=== PATIENT | male | born 1945 | race Caucasian/White ===

== ENCOUNTER → 2020-04-12 15:50 | Outpatient (BNVA) | payer MEDICARE, OTHER, SELFPAY | PROVIDERS: Family Provider Nurse Practitioner; PCP Nurse Practitioner; Visit Provider Nurse Practitioner | DX: R10.9 Unspecified abdominal pain (principal) | CPT/HCPCS: 80053; 81000; 85025 ==

== ENCOUNTER 2020-04-24 06:37 | Outpatient (CLI) | payer MEDICARE, OTHER, SELFPAY ==
--- NOTE | 2020-04-24 07:15 | US_ITS ---
NOTE: Report was unsigned for reason: Order was edited. Original Signature date and time was: 04/24/20 0836 WS: [id number] RENAL ULTRASOUND URINARY BLADDER ULTRASOUND HISTORY: right flank COMPARISON: None available. TECHNIQUE: 2-D and color Doppler imaging of the kidney submitted. Right kidney: 10.6 cm x 6.7 cm x 6.5 cm. Normal echogenicity with no hydronephrosis or mass. Left kidney: 10.6 cm x 5.0 cm x 5.6 cm. Normal echogenicity with no hydronephrosis or mass. Aorta: Mild atherosclerosis and ectasia. No aneurysm. Urinary Bladder: Minimally distended bladder. No intraluminal filling defects. Prostate gland is slightly enlarged measuring 4.2 x 4.4 x 3.0 cm. [facility] US/US renal BI with PV bladder IMPRESSION: 1. No renal obstruction or mass. 2. Mild prostate enlargement.
--- NOTE | 2020-04-24 08:00 | XR_ITS ---
WS: [id number] Exam: XR lumbar spine 2-3V* [id number] Date/Time of Exam: 04/24/2020 8:00 AM Reason For Exam: Right flank pain Findings: No acute fracture or dislocation. There is spondylosis. There is degenerative facet change at all lev els. 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 XR/XR lumbar spine 2-3V* [id number] IMPRESSION: 1. No acute fracture or malalignment. 2. Degenerative changes.
== END 2020-04-24 06:38 | disposition home or self-care (01) ==
LOC: US 06:42
PROVIDERS: PCP Nurse Practitioner; Visit Provider Nurse Practitioner
DX: R10.9 Unspecified abdominal pain (principal); N40.0 Benign prostatic hyperplasia without lower urinary tract symptoms
CPT/HCPCS: 72100; 76770; 76857

== ENCOUNTER → 2021-05-07 11:47 | Outpatient (BNVA) | payer MEDICARE, OTHER, SELFPAY | PROVIDERS: PCP Nurse Practitioner; Visit Provider Nurse Practitioner | DX: I10 Essential (primary) hypertension (principal) | CPT/HCPCS: 80053; 80061; 81000; 84443; 85025 ==

== ENCOUNTER → 2022-05-20 08:55 | Outpatient (BNVA) | payer MEDICARE, OTHER, SELFPAY | PROVIDERS: PCP Nurse Practitioner; Visit Provider Nurse Practitioner Family | DX: I10 Essential (primary) hypertension (principal) | CPT/HCPCS: 80053; 80061; 84443; 85025 ==

== ENCOUNTER → 2022-11-03 09:52 | Outpatient (BNVA) | payer MEDICARE, OTHER, SELFPAY | PROVIDERS: PCP Nurse Practitioner; Visit Provider Nurse Practitioner Family | DX: R05.9 Cough, unspecified (principal) | CPT/HCPCS: 71046 ==

== ENCOUNTER → 2023-03-16 10:41 | Outpatient (BNVA) | payer MEDICARE, OTHER, SELFPAY | PROVIDERS: PCP Nurse Practitioner; Visit Provider Nurse Practitioner Family | DX: I10 Essential (primary) hypertension (principal) | CPT/HCPCS: 80053; 80061; 84443; 85025 ==

== ENCOUNTER → 2023-09-21 09:45 | Outpatient (BNVA) | payer MEDICARE, OTHER, SELFPAY | PROVIDERS: PCP Nurse Practitioner; Visit Provider Nurse Practitioner Family | DX: I10 Essential (primary) hypertension (principal); E78.2 Mixed hyperlipidemia | CPT/HCPCS: 80053; 80061; 84443; 85025 ==

== ENCOUNTER → 2024-01-26 10:06 | Outpatient (BNVA) | payer MEDICARE, OTHER, SELFPAY | PROVIDERS: PCP Nurse Practitioner; Visit Provider Nurse Practitioner | DX: B35.1 Tinea unguium (principal) | CPT/HCPCS: 80053 ==

== ENCOUNTER 2024-03-15 06:14 | Outpatient (CLI) | payer MEDICARE, OTHER, SELFPAY ==
--- NOTE | 2024-03-15 06:30 | USCV_ITS ---
Carlos Morales Age: 79 Gender: M : 1945 Exam Date: 03/15/2024 06:42 Ordering Phys: Curtis Delaney Technologist: Liz Collado Exam Location: [facility] [place] Indication: SYNCOPE, SUPRIYA BP: 130 / 68 HR: 61 Rhythm: Sinus Technical Quality: MEASUREMENTS (Male / Female) Normal Values 2D ECHO LVOT Diameter 2.0 cm LV Ejection Fraction MOD 4C 55.4 % LV Ejection Fraction MOD 2C 70.1 % LV Ejection Fraction 2C AL 70.5 % LA Diameter 3.6 cm RA Systolic Volume 4C AL 27.4 ml RA Systolic Volume 4C MOD 25.3 ml LA Sys Volume AL 29.7 cm cubed LA Sys Volume Index AL 14.3 cm cubed/m squared Aorta at Sinotubular Diameter 2.8 cm IVC Diameter 1.9 cm M-MODE LA Ao Ratio MM 0.7 AV Cusp Separation MM 0.9 cm DOPPLER AV Peak Velocity 197.3 cm/s LVOT Peak Velocity 84.0 cm/s AV Area Cont Eq vti 1.4 cm squared AV Area Cont Eq pk 1.4 cm squared MV Peak Velocity 85.0 cm/s MV Area PHT 4.1 cm squared Mitral E to A Ratio 1.0 TR Peak Velocity 230.0 cm/s TR Peak Gradient 21.2 mmHg TR Mean Velocity 195.0 cm/s TR Mean Gradient 15.9 mmHg TR Velocity Time Integral 87.0 cm TV Peak E Velocity 58.0 cm/s Right Atrial Pressure 3.0 mmHg Pulmonary Artery Systolic Pressu 24.2 mmHg PV Peak Velocity 94.0 cm/s RV Ejection Time 0.4 s FINDINGS Left Ventricle Left ventricle is normal in size. LV systolic function is normal with EF of 50-55%. No regional wall motion abnormalities are seen. Right Ventricle Normal in size and function Right Atrium Normal in size Left Atrium Normal in size Mitral Valve Structurally normal mitral valve. Mild mitral regurgitation. Aortic Valve Aortic valve is thickened. Mild aortic stenosis with aortic valve area of 1.4cm2 and mean gradient across aortic valve of 10mmHg. Tricuspid Valve Mild tricuspid regurgitation. Pulmonary artery systolic pressure is normal Pulmonic Valve Not well visualized Pericardium Normal Aorta Normal in size IVC Not well visualized CONCLUSIONS LV systolic function is normal with EF of 50-55% Mild mitral regurgitation Mild aortic stenosis. Mild tricuspid regurgitation No comparison studies are available. Avni Mcfarlane MD (Electronically Signed) Final Date: 15 March 2024 07:23 S
== END 2024-03-15 06:15 | disposition home or self-care (01) ==
PROVIDERS: PCP Nurse Practitioner; Visit Provider Nurse Practitioner
DX: R00.1 Bradycardia, unspecified (principal); I35.8 Other nonrheumatic aortic valve disorders; I34.0 Nonrheumatic mitral (valve) insufficiency; I36.1 Nonrheumatic tricuspid (valve) insufficiency
CPT/HCPCS: 93306

== ENCOUNTER → 2024-03-15 08:05 | Outpatient (BNVA) | payer MEDICARE, OTHER, SELFPAY | PROVIDERS: PCP Nurse Practitioner; Referring Provider Nurse Practitioner; Visit Provider Internal Medicine | DX: R00.1 Bradycardia, unspecified (principal); I49.1 Atrial premature depolarization; I49.3 Ventricular premature depolarization | CPT/HCPCS: 93242 ==

== ENCOUNTER → 2024-05-23 09:09 | Outpatient (BNVA) | payer MEDICARE, OTHER, SELFPAY | PROVIDERS: PCP Nurse Practitioner; Visit Provider Nurse Practitioner | DX: M25.78 Osteophyte, vertebrae; M50.322 Other cervical disc degeneration at C5-C6 level | CPT/HCPCS: 72040; 72072 ==

== ENCOUNTER → 2024-06-03 13:23 | Outpatient (BNVA) | payer MEDICARE, OTHER, SELFPAY | PROVIDERS: PCP Nurse Practitioner; Visit Provider Emergency Medicine | DX: S29.9XXA Unspecified injury of thorax, initial encounter (principal); X58.XXXA Exposure to other specified factors, initial encounter | CPT/HCPCS: 71046 ==

== ENCOUNTER → 2024-08-04 10:22 | Outpatient (BNVA) | payer MEDICARE, OTHER, SELFPAY | PROVIDERS: PCP Nurse Practitioner; Visit Provider Nurse Practitioner | DX: I10 Essential (primary) hypertension (principal); E55.9 Vitamin D deficiency, unspecified | CPT/HCPCS: 80053; 80061; 82306; 82607; 84443; 85025 ==

== ENCOUNTER → 2024-10-27 08:44 | Outpatient (BNVA) | payer MEDICARE, OTHER, SELFPAY | PROVIDERS: PCP Nurse Practitioner; Visit Provider Nurse Practitioner | DX: B35.1 Tinea unguium (principal); Z63.4 Disappearance and death of family member; E55.9 Vitamin D deficiency, unspecified; E78.2 Mixed hyperlipidemia; Z12.5 Encounter for screening for malignant neoplasm of prostate | CPT/HCPCS: 80053; 80061; 82306; G0103 ==

== ENCOUNTER → 2025-03-01 12:13 | Outpatient (BNVA) | payer MEDICARE, OTHER, SELFPAY | PROVIDERS: PCP Nurse Practitioner; Visit Provider Nurse Practitioner | DX: I49.9 Cardiac arrhythmia, unspecified (principal) | CPT/HCPCS: 80053; 84443 ==

== ENCOUNTER → 2025-04-27 10:13 | Outpatient (BNVA) | payer MEDICARE, OTHER, SELFPAY | PROVIDERS: PCP Nurse Practitioner; Visit Provider Internal Medicine Cardiovascular Disease | DX: R00.2 Palpitations (principal); I35.0 Nonrheumatic aortic (valve) stenosis; E78.2 Mixed hyperlipidemia; R68.89 Other general symptoms and signs | CPT/HCPCS: 99204 ==

== ENCOUNTER 2025-05-11 07:21 | Outpatient (CLI) | payer MEDICARE, OTHER, SELFPAY ==
--- NOTE | 2025-05-11 07:45 | USCV_ITS ---
Carlos Morales Age: 80 Gender: M : 1945 Exam Date: 05/11/2025 07:48 Ordering Phys: Amos Arcos MD ([email or web address]) Technologist: [place] [facility] [place]: as BP: 120 / 70 HR: 66 Rhythm: Sinus Technical Quality: Adequate MEASUREMENTS (Male / Female) Normal Values 2D ECHO LV Diastolic Diameter PLAX 4.5 cm 4.2 - 5.9 / 3.9 - 5.3 cm IVS Diastolic Thickness 1.4 cm 0.6 - 1.0 / 0.6 - 0.9 cm IVS Systolic Thickness 1.8 cm LVPW Diastolic Thickness 1.4 cm 0.6 - 1.0 / 0.6 - 0.9 cm LVPW Systolic Thickness 2.2 cm LVOT Diameter 2.1 cm LV Ejection Fraction 2D Teich 56.3 % LV Ejection Fraction MOD 4C 49.4 % LV Ejection Fraction MOD 2C 57.4 % LV Ejection Fraction 2C AL 55.4 % LA Diameter 3.3 cm RA Systolic Volume 4C AL 40.8 ml RA Systolic Volume 4C MOD 39.8 ml Aorta at Sinotubular Diameter 3.4 cm IVC Diameter 1.8 cm M-MODE LA Ao Ratio MM 0.9 AV Cusp Separation MM 1.8 cm DOPPLER AV Peak Velocity 226.3 cm/s LVOT Peak Velocity 84.0 cm/s AV Area Cont Eq vti 1.3 cm squared AV Area Cont Eq pk 1.3 cm squared MV Peak Velocity 109.0 cm/s MV Area PHT 5.2 cm squared Mitral E to A Ratio 0.8 TR Peak Velocity 174.0 cm/s TR Peak Gradient 12.1 mmHg TV Peak E Velocity 70.0 cm/s PV Peak Velocity 117.0 cm/s FINDINGS Left Ventricle Normal left ventricular size and systolic function with no regional wall motion abnormality. Left ventricular ejection fraction is 56%. Normal left ventricular diastolic function. Mild concentric left ventricular hypertrophy. Right Ventricle Normal right ventricular size and systolic function. Right Atrium Normal right atrial size. Left Atrium Normal left atrial size. IA Septum Normal appearance of the interatrial septum. Mitral Valve Normal mitral valve structure. No mitral valve stenosis or regurgitation. Aortic Valve Aortic valve not well visualized. Mild to moderate aortic valve stenosis, mean gradient 9.8 mmHg, KUN 1.3 cm squared and LVOT/Aortic valve velocity of 0.37.no aortic valve regurgitation. Tricuspid Valve Normal tricuspid valve structure. Trace tricuspid valve regurgitation. Normal pulmonary pressure. Pulmonic Valve Normal pulmonic valve structure. No pulmonic valve stenosis or regurgitation. Pericardium No pericardial effusion. Aorta Normal diameter of the aortic root and ascending thoracic aorta. IVC Normal IVC diameter. CONCLUSIONS Normal left ventricular size, systolic function and wall thickness with ejection fraction of _ %. Normal right ventricular size and systolic function. Aortic valve not well visualized. Mild to moderate aortic valve stenosis, mean gradient 9.8 mmHg, KUN 1.3 cm squared and LVOT/Aortic valve velocity of 0.37. No aortic valve regurgitation. Amos Arcos MD, FACC (Electronically Signed) Final Date: 13 May 2025 12:25 S
== END 2025-05-11 07:22 | disposition home or self-care (01) ==
LOC: RAD 07:25
PROVIDERS: PCP Nurse Practitioner; Visit Provider Internal Medicine Cardiovascular Disease
DX: I35.0 Nonrheumatic aortic (valve) stenosis (principal)
CPT/HCPCS: 93306

== ENCOUNTER 2025-05-23 07:51 | Outpatient (CLI) | payer MEDICARE, OTHER, SELFPAY ==
--- NOTE | 2025-05-23 | ECG_ITS ---
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 Interpretive Statements Findings: The baseline blood pressure was 142/86 with a heart rate of 62. The patient exercised for 7 minutes and 27 seconds reaching a maximal heart rate of 148 bpm which was 104% of the patient's maximal predicted heart rate. The patient achieved 10.2 METS. The maximum blood pressure was 206/86. T,he baseline EKG showed normal sinus rhythm with nonspecific T wave abnormalities in the lateral limb leads. CONCLUSION: 1. Exercise capacity was good for age. 2. Heart rate response was appropriate. 3. Blood pressure response was appropriate. 4. No symptoms of angina during exercise. 5. Electrocardiogram portion of the stress test without evidence of ischemia. 6. Nuclear scan will be documented separately. Electronically Signed On 05-23-2025 18:06:11 GENERAL NEUROLOGIST by Amos Arcos M.D. [email or web address]
[2025-05-23 08:06] VITALS: BMI 25.0
--- NOTE | 2025-05-23 08:09 | NMCV_ITS ---
NM fransico perf SPECT r/s* [id number] Carlos Morales Age: 80 Gender: M : 1945 Exam Date: 05/23/2025 08:52 Ordering Phys: Amos Arcos MD ([email or web address]) Technologist: KERRI Maxwell Exam Location: [facility] Indications: CP STRESS TEST Please see separate stress test report in [facility] for full findings IMAGE PROTOCOL Rest/Stress 1 Exercise Day Radiopharmaceutical Dose (mCi) Administration Site Administered by Rest: Tc-99m 10.6 IV Zahraa Valle, KERRI Sestamibi Stress:Tc-99m 32.9 IV Zahraa Valle, STRADDLE BUG Sestamibi Rest: 23-May-2025 60 Discovery 630 Stress: 23-May-2025 15 Discovery 630 Radiopharmaceutical was injected at 98 % maximum heart rate. Images obtained in supine and prone position. SPECT RESULTS Technical Quality: Good Raw Data Analysis: Normal Image Corrections: No attenuation or motion correction applied Summed Stress Score: 0 Summed Rest Score: 5 Summed Difference Score: 0 PERFUSION FINDINGS SPECT images demonstrate homogeneous tracer distribution throughout the myocardium. FUNCTIONAL RESULTS (calculated via Gated SPECT) Stress Image LV EF (%): 63 Stress EDV (mL):105 TID: 0.69 Stress ESV (mL):39 FUNCTIONAL FINDINGS: There is normal left ventricular systolic function. IMPRESSIONS Myocardial perfusion imaging is normal. ormal left ventricular systolic function, EF 63%. Amos Arcos MD, FACC (Electronically Signed) Final Date: 23 May 2025 12:59 S
[2025-05-23 10:50] VITALS: BP 178/84; PULSE 78
== END 2025-05-23 07:52 | disposition home or self-care (01) ==
LOC: CDL 07:53
PROVIDERS: PCP Nurse Practitioner; Visit Provider Internal Medicine Cardiovascular Disease
DX: R07.9 Chest pain, unspecified (principal)
CPT/HCPCS: 36415; 78452; 93017; A9500